=== PATIENT | female | born 1955 | race Caucasian/White ===

== ENCOUNTER 2022-01-04 09:32 | Inpatient (IN) | payer OTHER ==
[2022-01-04 11:42] VITALS: BMI 33.5
[2022-01-04] MEDS ORDERED: Promethazine 25 MG TAB PO PRN (15:36)
[2022-01-04] MEDS ORDERED: Bisacodyl 10 MG SUPP PR PRN (15:39)
[2022-01-04] MEDS ORDERED: Sodium Chloride 0.65% Nasal 44 ML BOT EA NARE PRN (15:39)
[2022-01-04] MEDS ORDERED: Artificial Tear Sol 15 ML BOT EA EYE PRN (15:39)
[2022-01-04] MEDS ORDERED: Bisacodyl 5 MG TAB PO PRN (15:39)
[2022-01-04] MEDS ORDERED: Senokot S 8.6-50 MG TAB PO PRN (15:39)
[2022-01-04] MEDS ORDERED: Cepastat Lozenges 1 LOZ PO PRN (15:39)
[2022-01-04] MEDS ORDERED: Benzonatate 100 MG CAP PO PRN (15:39)
[2022-01-04] MEDS ORDERED: Ondansetron ODT 4 MG TAB PO PRN (15:39)
[2022-01-04] MEDS ORDERED: Guaifenesin DM 100-10/5 ML UDCUP PO PRN (15:39)
[2022-01-04] MEDS ORDERED: Acetaminophen 325 MG TAB PO PRN (15:39)
[2022-01-04] MEDS ORDERED: Acetaminophen 650 MG Suppository PR PRN (15:39)
[2022-01-04] MEDS ORDERED: Calcium Carbonate 500 MG ChewTAB PO PRN (15:39)
[2022-01-04] MEDS: HYDROcodone/Acetaminophen 5/325 mg Tablet PO PRN ×2 (16:15→22:31)
[2022-01-04] MEDS ORDERED: Mometasone 100 MCG/Formoterol 5 MCG 120 PUFF INHALER INH PRN (16:30)
[2022-01-04] MEDS: Escitalopram Oxalate 20 mg Tablet PO SCH (20:32)
[2022-01-04] MEDS: clonazePAM 1 MG TAB PO SCH (20:32)
[2022-01-04] MEDS: Gabapentin 400 MG CAP PO SCH (20:32)
[2022-01-04] MEDS: Polyethylene Glycol 3350 17 GM Packet PO SCH (20:33)
[2022-01-04] MEDS: buPROPion HCl 100 MG TAB PO SCH (20:34)
[2022-01-04] MEDS: Famotidine 20 MG TAB PO SCH (20:34)
[2022-01-04] MEDS: Montelukast Sodium 10 mg Tablet PO SCH (20:34)
[2022-01-04] MEDS: Fluticasone Propionate Nasal Spray 16 gm Bottle NASAL SCH (20:35)
[2022-01-04] MEDS: Cyclobenzaprine 10 MG TAB PO PRN (22:36)
[2022-01-05] MEDS: HYDROcodone/Acetaminophen 5/325 mg Tablet PO PRN ×3 (08:05→21:10)
[2022-01-05] MEDS: Enoxaparin Sodium 40 MG/0.4 ML SYRINGE SC SCH ×2 (09:31→09:42)
[2022-01-05] MEDS: Folic Acid 1 MG TAB PO SCH (09:31)
[2022-01-05] MEDS: Polyethylene Glycol 3350 17 GM Packet PO SCH ×2 (09:31→21:12)
[2022-01-05] MEDS: Fluticasone Propionate Nasal Spray 16 gm Bottle NASAL SCH ×2 (09:31→21:12)
[2022-01-05] MEDS: Spironolactone 25 MG TAB PO SCH (09:32)
[2022-01-05] MEDS: Zinc Sulfate 220 MG CAP PO SCH (09:32)
[2022-01-05] MEDS: Gabapentin 400 MG CAP PO SCH ×3 (09:32→21:11)
[2022-01-05] MEDS: Thiamine 100 MG TAB PO SCH (09:32)
[2022-01-05] MEDS: Loratadine 10 MG TAB PO SCH (09:33)
[2022-01-05] MEDS: Lisinopril 20 MG TAB PO SCH (09:33)
[2022-01-05] MEDS: Famotidine 20 MG TAB PO SCH ×2 (09:33→21:11)
[2022-01-05] MEDS: clonazePAM 1 MG TAB PO SCH ×2 (09:34→21:12)
[2022-01-05] MEDS: buPROPion HCl 100 MG TAB PO SCH ×2 (09:34→21:12)
[2022-01-05 09:52] LABS: #Basophils 0.1 thou/uL (0.0-0.2); #Eosinphils 0.2 thou/uL (0.0-0.7); #Lymphocytes 1.3 thou/uL (1.20-3.40); #Monocytes 0.6 thou/uL (0.11-0.59); #Neutrophils 4.6 thou/uL (1.40-6.50); %Basophils 1.1 % (0.0-1.0); %Eosinophils 3.3 % (0.0-10.0); %Lymphocytes 18.5 % (21.0-51.0); %Monocytes 8.4 % (0.0-10.0); %Neutrophils 68.7 % (42.0-75.0); Mean Corpuscular Hemoglobin 30.1 pg (27.0-31.0); Mean Platelet Volume 7.8 fL (7.4-10.4); Platelet Count 287 thou/uL (130-400); RBC Distribution Width 14.4 % (11.5-14.5); Red Blood Cell (RBC) Count 3.34 mill/uL (4.20-5.40); White Blood Cell (WBC) Count 6.7 thou/uL (4.8-10.8)
[2022-01-05 09:56] LABS: Anion Gap 14 mmol/L (10-20); BUN (Urea Nitrogen) 20 mg/dL (9.8-20.1); Calc. Creatinine Clearance 103 mL/min (70-130); Calcium 8.5 mg/dL (7.8-10.44); Carbon Dioxide 25 mmol/L (23-31); Chloride 105 mmol/L (98-107); Estimated GFR 93; Glucose 146 mg/dL (80-115); Potassium 4.5 mmol/L (3.5-5.1); Sodium 139 mmol/L (136-145)
[2022-01-05] MEDS: Cyclobenzaprine 10 MG TAB PO PRN (14:03)
[2022-01-05] MEDS: Escitalopram Oxalate 20 mg Tablet PO SCH (21:12)
[2022-01-05] MEDS: Montelukast Sodium 10 mg Tablet PO SCH (21:12)
[2022-01-06] MEDS: Fluticasone Propionate Nasal Spray 16 gm Bottle NASAL SCH ×2 (08:43→21:37)
[2022-01-06] MEDS: Enoxaparin Sodium 40 MG/0.4 ML SYRINGE SC SCH (08:44)
[2022-01-06] MEDS: Polyethylene Glycol 3350 17 GM Packet PO SCH ×2 (08:45→21:37)
[2022-01-06] MEDS: Gabapentin 400 MG CAP PO SCH ×3 (08:46→21:35)
[2022-01-06] MEDS: Spironolactone 25 MG TAB PO SCH (08:46)
[2022-01-06] MEDS: clonazePAM 1 MG TAB PO SCH ×2 (08:46→21:37)
[2022-01-06] MEDS: Loratadine 10 MG TAB PO SCH (08:46)
[2022-01-06] MEDS: buPROPion HCl 100 MG TAB PO SCH ×2 (08:46→21:37)
[2022-01-06] MEDS: Famotidine 20 MG TAB PO SCH ×2 (08:47→21:37)
[2022-01-06] MEDS: Lisinopril 20 MG TAB PO SCH (08:48)
[2022-01-06] MEDS: Zinc Sulfate 220 MG CAP PO SCH (08:49)
[2022-01-06] MEDS: Folic Acid 1 MG TAB PO SCH (08:49)
[2022-01-06] MEDS: Thiamine 100 MG TAB PO SCH (08:49)
[2022-01-06] MEDS: HYDROcodone/Acetaminophen 5/325 mg Tablet PO PRN ×3 (08:54→21:40)
[2022-01-06] MEDS: Cyclobenzaprine 10 MG TAB PO PRN (08:55)
[2022-01-06] MEDS: Montelukast Sodium 10 mg Tablet PO SCH (21:36)
[2022-01-06] MEDS: Escitalopram Oxalate 20 mg Tablet PO SCH (21:37)
[2022-01-07] MEDS: Enoxaparin Sodium 40 MG/0.4 ML SYRINGE SC SCH (08:56)
[2022-01-07] MEDS: Polyethylene Glycol 3350 17 GM Packet PO SCH ×2 (08:56→21:24)
[2022-01-07] MEDS: HYDROcodone/Acetaminophen 5/325 mg Tablet PO PRN ×2 (08:58→18:32)
[2022-01-07] MEDS: buPROPion HCl 100 MG TAB PO SCH ×2 (08:59→21:23)
[2022-01-07] MEDS: Gabapentin 400 MG CAP PO SCH ×3 (08:59→21:24)
[2022-01-07] MEDS: Folic Acid 1 MG TAB PO SCH (08:59)
[2022-01-07] MEDS: clonazePAM 1 MG TAB PO SCH ×2 (08:59→21:23)
[2022-01-07] MEDS: Famotidine 20 MG TAB PO SCH ×2 (08:59→21:23)
[2022-01-07] MEDS: Thiamine 100 MG TAB PO SCH (08:59)
[2022-01-07] MEDS: Zinc Sulfate 220 MG CAP PO SCH (08:59)
[2022-01-07] MEDS: Spironolactone 25 MG TAB PO SCH (09:00)
[2022-01-07] MEDS: Loratadine 10 MG TAB PO SCH (09:00)
[2022-01-07] MEDS: Lisinopril 20 MG TAB PO SCH (09:02)
[2022-01-07] MEDS: Fluticasone Propionate Nasal Spray 16 gm Bottle NASAL SCH ×2 (09:04→21:26)
[2022-01-07] MEDS: Cyclobenzaprine 10 MG TAB PO PRN (15:47)
[2022-01-07] MEDS: Montelukast Sodium 10 mg Tablet PO SCH (21:23)
[2022-01-07] MEDS: Escitalopram Oxalate 20 mg Tablet PO SCH (21:23)
[2022-01-07] MEDS: Apixaban 2.5 MG TAB PO SCH (21:23)
[2022-01-08] MEDS: HYDROcodone/Acetaminophen 5/325 mg Tablet PO PRN ×3 (04:38→18:15)
[2022-01-08] MEDS: clonazePAM 1 MG TAB PO SCH ×2 (08:34→21:19)
[2022-01-08] MEDS: Spironolactone 25 MG TAB PO SCH (08:35)
[2022-01-08] MEDS: Gabapentin 400 MG CAP PO SCH ×3 (08:36→21:20)
[2022-01-08] MEDS: Famotidine 20 MG TAB PO SCH ×2 (08:37→21:20)
[2022-01-08] MEDS: Loratadine 10 MG TAB PO SCH (08:37)
[2022-01-08] MEDS: buPROPion HCl 100 MG TAB PO SCH ×2 (08:37→21:19)
[2022-01-08] MEDS: Thiamine 100 MG TAB PO SCH (08:37)
[2022-01-08] MEDS: Folic Acid 1 MG TAB PO SCH (08:37)
[2022-01-08] MEDS: Zinc Sulfate 220 MG CAP PO SCH (08:37)
[2022-01-08] MEDS: Lisinopril 20 MG TAB PO SCH (08:39)
[2022-01-08] MEDS: Polyethylene Glycol 3350 17 GM Packet PO SCH ×2 (08:40→21:20)
[2022-01-08] MEDS: Fluticasone Propionate Nasal Spray 16 gm Bottle NASAL SCH ×2 (08:40→21:22)
[2022-01-08] MEDS: Apixaban 2.5 MG TAB PO SCH ×2 (08:40→21:20)
[2022-01-08] MEDS: Cyclobenzaprine 10 MG TAB PO PRN (15:31)
[2022-01-08] MEDS: Montelukast Sodium 10 mg Tablet PO SCH (21:19)
[2022-01-08] MEDS: Escitalopram Oxalate 20 mg Tablet PO SCH (21:19)
[2022-01-08] MEDS: Diclofenac 1% 100 GM GEL TP SCH (22:00)
[2022-01-09] MEDS: HYDROcodone/Acetaminophen 5/325 mg Tablet PO PRN ×3 (07:31→23:01)
[2022-01-09] MEDS: Zinc Sulfate 220 MG CAP PO SCH (10:19)
[2022-01-09] MEDS: Lisinopril 20 MG TAB PO SCH (10:19)
[2022-01-09] MEDS: Gabapentin 400 MG CAP PO SCH ×3 (10:20→20:36)
[2022-01-09] MEDS: Spironolactone 25 MG TAB PO SCH (10:20)
[2022-01-09] MEDS: buPROPion HCl 100 MG TAB PO SCH ×2 (10:21→20:37)
[2022-01-09] MEDS: Folic Acid 1 MG TAB PO SCH (10:21)
[2022-01-09] MEDS: Apixaban 2.5 MG TAB PO SCH ×2 (10:21→20:37)
[2022-01-09] MEDS: Famotidine 20 MG TAB PO SCH ×2 (10:21→20:37)
[2022-01-09] MEDS: clonazePAM 1 MG TAB PO SCH ×2 (10:21→20:37)
[2022-01-09] MEDS: Diclofenac 1% 100 GM GEL TP SCH ×2 (10:21→20:55)
[2022-01-09] MEDS: Thiamine 100 MG TAB PO SCH (10:21)
[2022-01-09] MEDS: Loratadine 10 MG TAB PO SCH (10:21)
[2022-01-09] MEDS: Polyethylene Glycol 3350 17 GM Packet PO SCH ×2 (10:22→20:37)
[2022-01-09] MEDS: Fluticasone Propionate Nasal Spray 16 gm Bottle NASAL SCH ×2 (10:22→20:37)
[2022-01-09] MEDS: Acetaminophen 325 MG TAB PO SCH ×3 (11:51→23:10)
[2022-01-09] MEDS: Escitalopram Oxalate 20 mg Tablet PO SCH (20:37)
[2022-01-09] MEDS: Montelukast Sodium 10 mg Tablet PO SCH (20:37)
[2022-01-09] MEDS: Cyclobenzaprine 10 MG TAB PO PRN (23:09)
[2022-01-10] MEDS: Acetaminophen 325 MG TAB PO SCH ×3 (06:18→17:31)
[2022-01-10 08:40] VITALS: BP 144/66; TEMP 97.1
[2022-01-10] MEDS: Apixaban 2.5 MG TAB PO SCH (10:08)
[2022-01-10] MEDS: Spironolactone 25 MG TAB PO SCH (10:08)
[2022-01-10] MEDS: clonazePAM 1 MG TAB PO SCH (10:08)
[2022-01-10] MEDS: Lisinopril 20 MG TAB PO SCH (10:09)
[2022-01-10] MEDS: Loratadine 10 MG TAB PO SCH (10:09)
[2022-01-10] MEDS: HYDROcodone/Acetaminophen 5/325 mg Tablet PO PRN ×2 (10:09→15:27)
[2022-01-10] MEDS: buPROPion HCl 100 MG TAB PO SCH (10:09)
[2022-01-10] MEDS: Folic Acid 1 MG TAB PO SCH (10:10)
[2022-01-10] MEDS: Gabapentin 400 MG CAP PO SCH ×2 (10:10→15:28)
[2022-01-10] MEDS: Famotidine 20 MG TAB PO SCH (10:11)
[2022-01-10] MEDS: Diclofenac 1% 100 GM GEL TP SCH (10:11)
[2022-01-10] MEDS: Zinc Sulfate 220 MG CAP PO SCH (10:11)
[2022-01-10] MEDS: Thiamine 100 MG TAB PO SCH (10:11)
[2022-01-10] MEDS: Polyethylene Glycol 3350 17 GM Packet PO SCH (10:12)
[2022-01-10] MEDS: Fluticasone Propionate Nasal Spray 16 gm Bottle NASAL SCH (10:12)
== END 2022-01-10 18:39 | disposition home or self-care (01) | DRG 948 ==
LOC: NAV ACUTE 11:16
PROVIDERS: ADMIT Family Medicine; ATTEND Family Medicine
DX: R53.1 Weakness (principal); F33.1 Major depressive disorder, recurrent, moderate; I50.32 Chronic diastolic (congestive) heart failure; M17.0 Bilateral primary osteoarthritis of knee; Z96.652 Presence of left artificial knee joint; F41.1 Generalized anxiety disorder; M79.7 Fibromyalgia; E11.9 Type 2 diabetes mellitus without complications; Z20.822 Contact with and (suspected) exposure to COVID-19; I11.0 Hypertensive heart disease with heart failure; Z98.84 Bariatric surgery status; Z88.6 Allergy status to analgesic agent; Z88.1 Allergy status to other antibiotic agents; Z88.0 Allergy status to penicillin; Z88.8 Allergy status to other drugs, medicaments and biological substances; Z79.899 Other long term (current) drug therapy; Z90.710 Acquired absence of both cervix and uterus; Z98.51 Tubal ligation status; Z90.49 Acquired absence of other specified parts of digestive tract; J45.909 Unspecified asthma, uncomplicated; Z86.39 Personal history of other endocrine, nutritional and metabolic disease
CPT/HCPCS: 80048; 85025; 87811; J1650